=== PATIENT | male | born 1950 | race Caucasian/White ===

== ENCOUNTER 2018-12-22 09:20 | Outpatient (CLI) | payer MEDICARE, OTHER ==
[2018-12-22] MEDS ORDERED: Gadobenate Dimeglumine 529 MG/1 ML (20ML VIAL) ONE (13:49)
--- NOTE | 2018-12-22 15:35 | MRI ---
MRI PROSTATE WITH AND WITHOUT IV CONTRAST: Date: 12/22/18 HISTORY: Elevated PSA. TECHNIQUE: Multiplanar, multisequence MRI of the pelvis was performed prior to and after the administration of i ntravenous contrast using the prostate protocol. Review an independent 3D workstation also performed. FINDINGS: The prostate measures 5.0 x 5.0 x 5.5 cm with a volume of 72 mL. No focal abnormal areas of diffusion restriction are seen in the peripheral zone to suggest malignant process. No lentiform area of abnormally decreased T2 signal is seen in the transition level to suggest a delta gnant process. No focal arterial enhancing mass is seen. The prostatic capsule is intact. The seminal vesicles are normal. No lymphadenopathy is seen. The pelvic side wall is normal. No abnormal areas of signal replacement s een on the T1-weighted sequences to suggest osseous metastatic disease. IMPRESSION: PI-RADS 2: Low (clinically significant prostate cancer is unlikely to be present). This study was interpreted in consultation with Dr. Jeronimo Brown, who concurs. POS: ALICE
== END 2018-12-22 09:21 | disposition home or self-care (01) ==
LOC: TBSIIMAG 09:20
PROVIDERS: ATTEND Urology
DX: R97.20 Elevated prostate specific antigen [PSA] (principal)
CPT/HCPCS: 72197; 82565; A9577